=== PATIENT | male | born 1985 | race African-American/Black ===

== ENCOUNTER 2020-09-15 12:34 | Emergency (ER) | payer SELFPAY ==
[~2020-09-15] VITALS: Ht 172.7 cm; Wt 70.0 kg
[2020-09-15] MEDS ORDERED: BACITRACIN ZINC OINT UDPKT TOP ONE (14:00)
[2020-09-15] MEDS ORDERED: BO1 TP (14:42)
[2020-09-15] MEDS ORDERED: TOPUD MT (14:42)
[2020-09-15] MEDS ORDERED: CEPH500T MT (14:42)
[2020-09-15 15:04] VITALS: BP 130/98
== END 2020-09-15 15:05 | disposition home or self-care (01) ==
LOC: ER 12:34
DX: S90.31XA Contusion of right foot, initial encounter (principal); L60.0 Ingrowing nail; W50.1XXA Accidental kick by another person, initial encounter; Y93.89 Activity, other specified; Y92.89 Other specified places as the place of occurrence of the external cause; Y99.8 Other external cause status; F31.9 Bipolar disorder, unspecified; F20.9 Schizophrenia, unspecified
CPT/HCPCS: 73630; 99283; Z7610

== ENCOUNTER 2023-11-19 14:58 | Emergency (ER) | payer MEDICAID, OTHER ==
[~2023-11-19] VITALS: Ht 180.3 cm; Wt 91.0 kg
[~2023-11-19 14:58] MED LIST: BO1 TP; CEPH500T MT; TOPUD MT
[2023-11-19 15:07] VITALS: BP 149/101; RESP 18; TEMP 98.1; O2SAT 98
[2023-11-19 15:16] VITALS: PULSE 112
[2023-11-19] MEDS: CEPHALEXIN 250MG CAPSULE PO ONE (20:04)
[2023-11-19] MEDS: SULFAMETHOXAZOLE/TRIMETHOPRIM 800/160MG TABLET PO ONE (20:04)
[2023-11-19] MEDS ORDERED: SULF1TAB48 MT (21:13)
[2023-11-19] MEDS ORDERED: CEPH500T MT (21:13)
== END 2023-11-19 21:15 | disposition home or self-care (01) ==
LOC: ER 14:58
DX: L08.9 Local infection of the skin and subcutaneous tissue, unspecified (principal); M79.674 Pain in right toe(s); F31.9 Bipolar disorder, unspecified; F20.9 Schizophrenia, unspecified; Z79.899 Other long term (current) drug therapy
CPT/HCPCS: 73660; 99283